=== PATIENT | female | born 1970 | race Caucasian/White ===

== ENCOUNTER → 2017-03-30 | Outpatient (CLI) | payer BC | LOC: LAB 11:18 | DX: J02.0 Streptococcal pharyngitis (principal); B95.0 Streptococcus, group A, as the cause of diseases classified elsewhere ==

== ENCOUNTER → 2017-08-21 | Outpatient (CLI) | payer BC | LOC: RAD 11:54 | DX: N95.0 Postmenopausal bleeding (principal) ==

== ENCOUNTER → 2020-05-08 | Outpatient (CLI) | payer BC | LOC: RAD 14:58 | DX: R35.0 Frequency of micturition (principal); R14.0 Abdominal distension (gaseous) ==

== ENCOUNTER → 2020-05-09 | Outpatient (CLI) | payer BC ==
[2020-05-09 10:03] LABS: HEMATOCRIT 42.8 % (37.0-47.0); HEMOGLOBIN 14.3 g/dL (12.5-16.0); MEAN PLATELET VOLUME 9.1 fl (7.4-10.4); RED BLOOD COUNT 4.66 M/mm3 (4.10-5.30); RED CELL DISTRIBUTION WIDTH 12.3 % (11.5-14.5); WHITE BLOOD COUNT 7.1 K/mm3 (4.8-10.8)
[2020-05-09 10:08] LABS: POTASSIUM 4.4 mmol/L (3.5-5.1)
[2020-05-09 10:10] LABS: CALCIUM 8.6 mg/dL (8.3-10.5)
[2020-05-09 10:11] LABS: TOTAL PROTEIN 7.4 g/dL (6.4-8.3)
[2020-05-09 10:13] LABS: TOTAL BILIRUBIN 0.6 mg/dL (0.2-1.2)
== END ==
LOC: LAB 09:46
DX: Z01.419 Encounter for gynecological examination (general) (routine) without abnormal findings (principal); R53.83 Other fatigue

== ENCOUNTER → 2021-11-21 | Outpatient (CLI) | payer BC | LOC: LAB 16:36 | DX: U07.1 COVID-19 (principal) ==

== ENCOUNTER → 2022-05-28 | Outpatient (CLI) | payer BC | LOC: RAD 13:00 → LAB 13:00 | DX: N39.0 Urinary tract infection, site not specified (principal); Z80.51 Family history of malignant neoplasm of kidney ==